=== PATIENT | female | born 1965 | race Caucasian/White ===

== ENCOUNTER 2016-08-08 07:18 | Emergency (ER) | payer OTHER ==
[~2016-08-08] VITALS: Ht 182.9 cm; Wt 127.3 kg
[~2016-08-08 07:18] MED LIST: LISI1TAB9 PO; VENL-57 PO
[2016-08-08 07:23] VITALS: BP 145/88; PULSE 60; RESP 16; O2SAT 96
[2016-08-08 07:52] LABS: BASOPHILS % (AUTO) 0.4 % (0-3); EOSINOPHILS % (AUTO) 3.1 % (0-5); MONOCYTES % (AUTO) 7.2 % (4-12); Mean Corpuscular Hemoglobin 29.4 pg (27.0-35.0); Mean Corpuscular Volume 90.5 fL (81-100); NEUTROPHILS % (AUTO) 62.4 % (40-74); Platelet Count 178 bil/L (150-400)
[2016-08-08 08:13] LABS: TROPONIN T 0.01 ug/L (0.0-0.011)
--- NOTE | 2016-08-08 08:15 | ED.REPORT ---
HPI-Chest Pain 40 and Over Date of Service Aug 08, 2016 ED Provider: Hood Sabillon MD 51 y/o female with a hx of atrial fibrillation and hypertension presents to the ED complaining of non-radiating mid-sternal chest pressure, onset an hour ago. The pain came on after she drank a protein shake. She states it feels tight over the sternum and under her left breast. She denies lower extremity edema. Her sx are relieved when she sits up and are exacerbated with laying down and taking a deep breath.Her sx have improved since arriving at the ED but have not completely resolved. Nursing Notes Stated Complaint: CHEST PAIN Chief Complaint: Chest Pain Nursing Notes Reviewed: Yes Allergies: Coded Allergies: No Known Allergies (Unverified , 02/25/15) Scheduled Lisinopril / HCTZ 20-12.5 mg (Lisinopril / HCTZ 20-12.5 mg) 1 Each Tablet 1 EACH PO DAILY Venlafaxine ER (Venlafaxine ER) 37.5 Mg Cap.er.24h 112.5 MG PO DAILY General Time Seen by MD: 07:33 Chief Complaint Chest pressure Hx Obtained From: Patient Arrived By: Walk-in Sudden in Onset?: Yes Onset Occurred: 1 - 4 hours ago Symptom Duration: Since onset Location: : Substernal Quality: Pressure Radiation: : Does not radiate Severity: Current: Mild Severity: Maximum: Moderate Recent Healthcare: No recent doctor visit Similar Sx Previous: No Past Medical History Past Medical History Notes: Primary Care: Zenaida CHURCH Past Medical History Anemia Fibroids Menometrorrhagia Sleep apnea, wears CPAP at night to sleep Hypertension Reports: Atrial fibrillation, Atrial flutter Past Surgical History Hysterectomy Family History Noncontributory Smoking History Never Smoker Social History Alcohol Use: "Social" Drug Use: Denies drug use Other Social History: , Local resident Ambulatory Status Independent Review of Systems Reports: tightness under her left breast. Cardiovascular: Reports: Chest pain (chest pressure), Denies: Edema Complete sys rev & neg: except as marked. Physical Exam Initial Vital Signs Vital Signs (First) Date Time Temp Pulse Resp B/P Pulse Ox O2 Delivery O2 Flow Rate FiO2 08/08/16 07:23 36.6 60 16 145/88 96 Room Air Initial VS: Reviewed Neck: Supple, Full range of motion Extremities: Vascular intact, Neuro intact, No tenderness Skin: Warm, Dry, No cyanosis Neurologic: Alert, Oriented, Nonfocal General/Constitutional: Awake, Alert, Cooperative Respiratory / Chest: Atraumatic, Breath sounds NL, Breath sounds = bilat, No respiratory distress, No rales, No rhonchi, No wheezing Cardiovascular: Heart rate NL, Regular rhythm, Heart sounds NL, No gallop, No murmurs, No rubs No reproducible midsternal pain. Trace edema bilaterally, worse on the left. Abdomen: Atraumatic, Soft, Non-tender, No guarding, No rebound Interpretation & Diagnostics Lab Results Interpretation Result Diagram: 08/08/16 0740 08/08/16 0740 Test 08/08/16 07:40 08/08/16 07:45 08/08/16 09:55 White Blood Count 7.2th/mm3 (3.8-10.1) Red Blood Count 4.32mil/mm3 (3.90-5.20) Hemoglobin 12.7g/dL (12.0-15.6) Hematocrit 39.1% (35.0-46.0) Mean Corpuscular Volume 90.5fL (81-100) Mean Corpuscular Hemoglobin 29.4pg (27.0-35.0) Mean Corpuscular Hemoglobin Concent 32.5% (32.0-37.0) Red Cell Distribution Width 13.6% (12.3-15.4) Platelet Count 178bil/L (150-400) Neutrophils (%) (Auto) 62.4% (40-74) Lymphocytes (%) (Auto) 26.8% (14-46) Monocytes (%) (Auto) 7.2% (4-12) Eosinophils (%) (Auto) 3.1% (0-5) Basophils (%) (Auto) 0.4% (0-3) Sodium Level 141mEq/L (134-144) Potassium Level 3.7mEq/L (3.5-5.2) Chloride Level 104mEq/L (97-108) Carbon Dioxide Level 23mmol/L (18-29) Blood Urea Nitrogen 20mg/dL (6-24) Creatinine 0.71mg/dL (0.57-1.00) Estimat Glomerular Filtration Rate 124mL/min (>59) Glucose Level 110mg/dL (60-99) Calcium Level 9.5mg/dL (8.5-10.1) Magnesium Level 2.0mg/dL (1.6-2.6) Total Bilirubin 0.2mg/dL (0.0-1.2) Aspartate Amino Transf (AST/SGOT) 44U/L (0-50) Alanine Aminotransferase (ALT/SGPT) 42U/L (0-32) Alkaline Phosphatase 93U/L (25-150) Total Protein 7.2g/dL (6.4-8.4) Albumin 3.9g/dL (3.4-5.0) Lipase 38U/L (13-60) Hold Jeong Top Tube Received (Received) Troponin T 0.010ug/L (0.0-0.011) ECG Interpretation ECG Interpretation: Normal Sinus rhtyhm. Rate 56. Probable left ventricular hypertrophy. Time: 07:28 Interpreted by: ED physician X-Ray Chest Interpretation Chest Xray Interpretation: IMPRESSION: No acute cardiopulmonary disease. Dictated by: Jenny Romo M.D. on 08/08/2016 at 8:35 Approved by: Jenny Romo M.D. on 08/08/2016 at 8:35 View: Portable, 1 view Interpretation / Wet Read by: Interpret - Radiologist Re-Eval/Medical Decision Time of Eval: 11:06 Patient Status: Condition improved Re-Evaluation/Progress Note: Rechecked pt. Discussed lab results, imaging results, diagnosis and plan to discharge. Pt understands and agrees with the plan. F/U instructions and RTER warning given. All questions addressed. Counseled Regarding: Diagnosis, Lab results, Need for follow-up, When/why to return to ED Discharge & Departure Primary Impression: Chest pain Chest pain type: precordial pain Qualified Code: R07.2 - Precordial pain Disposition: Home Discharge Condition All VS Reviewed: Yes Condition: Stable Patient Instructions: Chest Pain (ED) Additional Instructions: No dangerous cause for your chest pain is identified today. Laboratory data and x-ray and physical examination and your medical history are reassuring. I recommend follow up with your provider in the coming days for further evaluation as needed. In the meantime, I recommend naproxen 500 mg twice daily and Prilosec once daily. Follow-up immediately for fainting, severe radiating chest pain, dense sweatiness or severe shortness of breath. Referrals: Zenaida Chandra (PCP) Scribe Attestation Portions of this note were transcribed by Alaina Arizmendi. I, , personally performed the history, physical exam and medical decision-making;I reviewed and confirmed the accuracy of the information in the transcribed note. Signed by Brittanie Mike. 08/08/16 11:15 copies to: Zenaida Chandra Kirk H MD Aug 08, 2016 08:15 Alaina Arizmendi Aug 08, 2016 08:42
--- NOTE | 2016-08-08 08:37 | DRSVH ---
PROCEDURE: X-RAY CHEST ONE VIEW, PORTABLE ([id number]) INDICATIONS: CHEST PAIN TECHNIQUE: One view of the chest was acquired. COMPARISON: Merged With [facility], CR, XR CHEST 1VW (PORTABLE), 01/26/2015, 11:50. FINDINGS: Surgical changes and devices: None. Lungs and pleura: No pleural effusions or pneumothorax. Lungs are clear. Mediastinum: Mediastinal contours appear normal. Heart size is normal. Bones and chest wall: No suspicious bony lesions. Overlying soft tissues appear unremarkable. IMPRESSION: No acute cardiopulmonary disease. Dictated by: Jenny Romo M.D. on 08/08/2016 at 8:35 Approved by: Jenny Romo M.D. on 08/08/2016 at 8:35
[2016-08-08] MEDS ORDERED: LidocaineVisc 2%:Antacid 1:1 10 mL Syringe PO ONE (08:55)
[2016-08-08] MEDS ORDERED: Pantoprazole 4 mg/mL 10 mL Inj IVPUSH ONE (10:05)
[2016-08-08 11:36] VITALS: BP 136/94; PULSE 49; RESP 16
== END 2016-08-08 11:35 | disposition home or self-care (01) ==
LOC: SED 07:18
DX: R07.2 Precordial pain (principal); I48.91 Unspecified atrial fibrillation; I10 Essential (primary) hypertension; G47.30 Sleep apnea, unspecified
CPT/HCPCS: 36415; 71010; 80053; 83690; 83735; 84484; 85025; 93005; 96374; 96375; 99285; J1885

== ENCOUNTER 2016-10-05 12:25 | Emergency (ER) | payer OTHER ==
[~2016-10-05] VITALS: Ht 182.9 cm; Wt 136.4 kg
[2016-10-05] VITALS (7 sets, daily range): BP systolic 122–147; BP diastolic 61–99; PULSE 53–59; RESP 16–19; O2SAT 94–97
--- NOTE | 2016-10-05 12:39 | ED.REPORT ---
HPI-Trauma Minor / Fall Date of Service Oct 05, 2016 ED Provider: Eryn Cerna MD The pt is a 51 y/o male w/ a hx of A-fib and HTN presenting to the ED via EMS due to a lower back injury. She was riding her horse, got bucked off, and she reports landing on either the side of her buttocks or flat on her back. There was no LOC. She reports 8/10, aching, lower central back pain. Denies leg pain, arm pain, neck pain. Nursing Notes Stated Complaint: THROWN OFF HORSE Chief Complaint: Back Pain or Injury Nursing Notes Reviewed: Yes Allergies: Coded Allergies: No Known Allergies (Unverified , 02/25/15) Scheduled Lisinopril / HCTZ 20-12.5 mg (Lisinopril / HCTZ 20-12.5 mg) 1 Each Tablet 1 EACH PO DAILY Venlafaxine ER (Venlafaxine ER) 37.5 Mg Cap.er.24h 112.5 MG PO DAILY General Time Seen by MD: 12:38 Chief Complaint Fall Hx Obtained From: Patient Arrived By: Ambulance Onset Occurred: Just prior to arrival Symptom Duration: Since onset Caused by: Fall from height... (6-10 feet) Recent Healthcare: No recent hospitalization, Recent doctor visit Similar Sx Previous: No Past Medical History Past Medical History Notes: Primary Care: Zenaida CHURCH Past Medical History Anemia Fibroids Menometrorrhagia Sleep apnea, wears CPAP at night to sleep Hypertension Reports: Atrial fibrillation, Atrial flutter Past Surgical History Hysterectomy Family History Noncontributory Smoking History Never Smoker Social History Alcohol Use: "Social" Drug Use: Denies drug use Other Social History: , Local resident Ambulatory Status Independent Review of Systems Musculoskeletal: Reports: Back pain (Lower ), Denies: Extremity pain, Neck pain Complete sys rev & neg: except as marked. Physical Exam Initial Vital Signs Vital Signs (First) Date Time Temp Pulse Resp B/P Pulse Ox O2 Delivery O2 Flow Rate FiO2 10/05/16 12:31 36.6 58 19 147/99 97 Room Air 10/05/16 15:16 2 Initial VS: Reviewed Head / Eyes: Atraumatic, Normocephalic, PERRL ENT: Mucous membranes moist, Conjunctiva normal, No scleral icterus Respiratory: Breath sounds normal, Clear to auscultation, No respiratory distress Cardiovascular: Regular rate & rhythm, Heart sounds normal, Intact distal pulses Skin: Warm, Dry, No cyanosis Neurologic: Alert, Oriented, Nonfocal Psychiatric: Mood/affect normal, Behavior normal, Normal thought content General/Constitutional: Awake, Alert Neck: Atraumatic, Supple Flank / Spine / Paraspinal: Positive: Lumbar spine tender... (mid to lower ) No step-off sign Lower Extremity / Pelvis / MS: No deformity, Pelvis stable Interpretation & Diagnostics PROCEDURE: CT LUMBAR SPINE WITHOUT CONTRAST ([id number]) IMPRESSION: The L1 compression fracture is of greater severity than was suspected by plain film, and includes a "burst type" component predominantly anteriorly positioned, but extending into the posterior third of the vertebral body. Retropulsion of bone fragments into the spinal canal is not present but instead there is anteropulsion of the anterior vertebral body by 8 mm forward. An epidural or subdural hematoma in this area is not suspected. This injury is considered potentially unstable, with risk of further height reduction or displacement of fracture components. Orthopedic consultation appears warranted given these findings. No additional acute injury found. Dictated by: Greyson Erickson M.D. on 10/05/2016 at 14:33 Approved by: Greyson Erickson M.D. on 10/05/2016 at 14:45 Lab Results Interpretation Test 10/05/16 13:45 Hold Urine Received (Received) X-Ray Chest Interpretation Chest Xray Interpretation: IMPRESSION: No acute disease. Mild chronic interstitial prominence. Dictated by: Greyson Erickson M.D. on 10/05/2016 at 13:31 Approved by: Greyson Erickson M.D. on 10/05/2016 at 13:32 View: Portable, 1 view Interpretation / Wet Read by: Interpret - Radiologist X-Ray Interpretation Xray Interpretation: IMPRESSION: The L1 vertebral body shows a superior endplate mild impaction fracture with approximately 8% vertebral height reduction when compared to the T12 level immediately above at the middle third of the vertebral body, and in this clinical circumstance this likely is an acute compression fracture. No retropulsion of bone fragments into the spinal canal are seen. MR scanning could be utilized for additional assessment of spinal and foraminal stenosis and to confirm acute compression fracture if clinically indicated. Dictated by: Greyson Erickson M.D. on 10/05/2016 at 13:23 Approved by: Greyson Erickson M.D. on 10/05/2016 at 13:31 Study Performed: PROCEDURE: X-RAY LUMBAR SPINE, 2 OR 3 VIEW Interpretation / Wet Read by: Interpret - Radiologist Xray Interpretation: IMPRESSION: No trauma found. Asymmetric mild to moderate hip joint osteoarthritis greater on the right than the left. Dictated by: Greyson Erickson M.D. on 10/05/2016 at 13:23 Approved by: Greyson Erickson M.D. on 10/05/2016 at 13:23 X-Ray Ordered: Pelvis Interpretation / Wet Read by: Interpret - Radiologist Re-Eval/Medical Decision Med Decision/Clinical Course The patient was bucked off her horse and has isolated spinal injury. Initially it was thought to be just a compression fracture however the CT shows that it is a burst fracture. Patient will need neurosurgical evaluation. We are currently waiting a call back from Dr. Wilkes at [facility]. The patient is neurologically intact, we have some difficulty with pain control. She decided at [facility] Dr. Sabillon. Re-Evaluation/Progress #1: Time of Eval: 13:50 Re-Evaluation/Progress Note: Rechecked pt who continues to rate her pain as a 8/10. Discussed imaging results. Re-Evaluation/Progress #2: Time of Eval: 14:34 Re-Evaluation/Progress Note: Pt rechecked. Informed pt of need for admission. Pt understands and agrees with plan for admission. All questions addressed. Consultation #1: Call Returned at: 14:23 Note: Spoke to Dr. Duenas at [facility] who said they would be happy to see the pt in 4 weeks and recommends a TLSO brace for the pt. Consultation #2: Referral / Consult Name: Rajendra Salazar MD Consulted With: Hospitalist Call Returned at: 14:58 Carpet Or Rug Layer Helper: Will see patient, Agrees with eval, Agrees with plan, Accepts admit Counseled Regarding: Diagnosis, Lab results, Need for admission Discharge & Departure Impression: Primary Impression: L1 vertebral fracture Encounter type: initial encounter Fracture type: closed Fracture morphology : unspecified fracture morphology Qualified Code: S32.019A - Unspecified fracture of first lumbar vertebra, initial encounter for closed fracture Disposition: ADMITTED TO HOSPITAL Discharge Condition All VS Reviewed: Yes Condition: Stable Referrals: Zenaida Chandra (PCP) Care Transferred to: Dr. [place] Care Transferred at: 15:56 Scribe Attestation Portions of this note were transcribed by Emre Shetty. I, Dr. Cerna personally performed the history, physical exam and medical decision-making; I reviewed and confirmed the accuracy of the information in the transcribed note. copies to: Zenaida Chandra Jena M MD Oct 05, 2016 12:39 Emre Shetty Oct 05, 2016 13:09
[2016-10-05] MEDS ORDERED: Ondansetron 2 mg/mL 2 mL Inj IVPUSH PRN (12:50)
[2016-10-05] MEDS ORDERED: 0.9% Sodium Chloride 500 ML IV ONE (12:50)
[2016-10-05] MEDS: HYDROmorphone 0.5 mg/0.5 mL iSecure Syringe IVPUSH PRN ×4 (13:02→14:14)
--- NOTE | 2016-10-05 13:24 | DRSVH ---
PROCEDURE: X-RAY PELVIS, ONE OR TWO VIEWS ([id number]) INDICATIONS: fall TECHNIQUE: Single frontal view of the pelvis acquired. COMPARISON: None. FINDINGS: Bones: No fractures or dislocations. No suspicious bony lesions. Soft tissues: Visualized bowel gas pattern is normal. No suspicious soft tissue calcifications. IMPRESSION: No trauma found. Asymmetric mild to moderate hip joint osteoarthritis greater on the ri ght than the left. Dictated by: Greyson Erickson M.D. on 10/05/2016 at 13:23 Approved by: Greyson Erickson M.D. on 10/05/2016 at 13:23
--- NOTE | 2016-10-05 13:33 | DRSVH ---
PROCEDURE: X-RAY LUMBAR SPINE, 2 OR 3 VIEW INDICATIONS: fall TECHNIQUE: 3 views of the lumbar spine were acquired. COMPARISON: [facility], CT, CT CHEST W CON, 03/14/2015, 7:57. [facility], CT , ABD/PELVIS W/CON (PNL), 01/09/2012, 18:38. [facility], CR, XR PELVIS 1 OR 2VW, 10/06/19 17, 13:04. FINDINGS: Bones: 5 [id number]-[id number] vertebrae are present. There is normal bony alignment. There is a new find ing of a mild superior endplate vertebral body compression fracture involving L1, in an area previous ly normal during CT scanning 03/14/15.. No suspicious bony lesions. Soft tissues: Overlying bowel gas pattern is normal. No suspicious soft tissue calcifications. IMPRESSION: The L1 vertebral body shows a superior endplate mild impaction fracture with approximate ly 8% vertebral height reduction when compared to the T12 level immediately above at the middle third of the vertebral body, and in this clinical circumstance this likely is an acute compression fractur e. No retropulsion of bone fragments into the spinal canal are seen. MR scanning could be utilized for additional assessment of spinal and foraminal stenosis and to confirm acute compression fracture if clinically indicated. Dictated by: Greyson Erickson M.D. on 10/05/2016 at 13:23 Approved by: Greyson Erickson M.D. on 10/05/2016 at 13:31
--- NOTE | 2016-10-05 13:34 | DRSVH ---
PROCEDURE: X-RAY CHEST ONE VIEW, PORTABLE ([id number]) INDICATIONS: fall TECHNIQUE: One view of the chest was acquired. COMPARISON: None. FINDINGS: Surgical changes and devices: None. Lungs and pleura: No pleural effusions or pneumothorax. Lungs are clear except for mild chronic int erstitial prominence. Reduced inspiratory volume Mediastinum: Mediastinal contours appear normal. Heart size is normal. Bones and chest wall: No suspicious bony lesions. Overlying soft tissues appear unremarkable. IMPRESSION: No acute disease. Mild chronic interstitial prominence. Dictated by: Greyson Erickson M.D. on 10/05/2016 at 13:31 Approved by: Greyson Erickson M.D. on 10/05/2016 at 13:32
--- NOTE | 2016-10-05 14:47 | DRSVH ---
PROCEDURE: CT LUMBAR SPINE WITHOUT CONTRAST ([id number]) INDICATIONS: fall TECHNIQUE: Noncontrast 3 mm thick sections acquired from the T12 level to the sacrum. Sagittal and coronal refo rmats were constructed. For radiation dose reduction, the following was used: automated exposure co ntrol. COMPARISON: None. FINDINGS: Image quality: Excellent. Bones: There is normal bony alignment. There is a definite acute burst type LI vertebral body compre ssion fracture, with both vertically and horizontally oriented components to this fracture which is m ore prominent anteriorly than posteriorly. The fracture planes are predominantly anterior but appear to extend into the posterior third of the vertebral body, and yet the posterior margin of the spinal canal is not retropulsed. Rather, there is anteropulsion of the L1 vertebral body, which protrudes approximately 8 mm forward from expected position. The middle third vertebral body compression fract ure measures 11%, when compared to the T12 vertebral body height immediately above. No suspicious lytic or blastic bony lesions. Central spinal caliber is of normal overall caliber. N o pars defects. Soft tissues: No retroperitoneal masses or hematomas. Visualized aorta is normal in caliber. IMPRESSION: The L1 compression fracture is of greater severity than was suspected by plain film, and includes a "burst type" component predominantly anteriorly positioned, but extending into the instrument technologist ior third of the vertebral body. Retropulsion of bone fragments into the spinal canal is not present but instead there is anteropulsion of the anterior vertebral body by 8 mm forward. An epidural or subdural hematoma in this area is not suspected. This injury is considered potentiall y unstable, with risk of further height reduction or displacement of fracture components. Orthopedic consultation appears warranted given these findings. No additional acute injury found. Dictated by: Greyson Erickson M.D. on 10/05/2016 at 14:33 Approved by: Greyson Erickson M.D. on 10/05/2016 at 14:45
[2016-10-05] MEDS ORDERED: fentaNYL-PF 50 mCg/mL 2 mL Inj IVPUSH ONE (15:05)
[2016-10-05] MEDS ORDERED: fentaNYL-PF 50 mCg/mL 2 mL Inj IVPUSH PRN (16:00)
[2016-10-05 16:59] LABS: BASOPHILS % (AUTO) 0.4 % (0-3); EOSINOPHILS % (AUTO) 1.4 % (0-5); MONOCYTES % (AUTO) 4.8 % (4-12); Mean Corpuscular Hemoglobin 28.9 pg (27.0-35.0); NEUTROPHILS % (AUTO) 80.2 % (40-74); Platelet Count 168 bil/L (150-400)
[2016-10-05 17:01] LABS: Magnesium 1.9 mg/dL (1.6-2.6)
[2016-10-05] MEDS ORDERED: HYDROmorphone 1 mg/mL Inj IVPUSH ONE (17:05)
[2016-10-05] MEDS ORDERED: Acetaminophen IV 1,000 MG in IV Premix 1 EACH IV ONE (17:05)
[2016-10-05] MEDS ORDERED: HYDROmorphone 1 mg/mL Inj IVPUSH PRN (17:05)
== END 2016-10-05 19:02 | disposition short-term general hospital (02) ==
LOC: SED 12:25
DX: S32.019A Unspecified fracture of first lumbar vertebra, initial encounter for closed fracture (principal); V80.010A Animal-rider injured by fall from or being thrown from horse in noncollision accident, initial encounter; Y93.52 Activity, horseback riding; Y92.9 Unspecified place or not applicable; Y99.8 Other external cause status; I10 Essential (primary) hypertension; Z90.710 Acquired absence of both cervix and uterus
CPT/HCPCS: 36415; 71010; 72100; 72131; 72170; 80048; 83735; 85025; 96374; 96375; 96376; 99285; J0131; J1170; J2060; J2270; J2405; J3010; J7040